=== PATIENT | male | born 1970 | race African-American/Black ===

== ENCOUNTER 2017-08-20 10:38 | Outpatient (CLI) | payer OTHER ==
--- NOTE | 2017-08-20 12:51 | MRI ---
MRI OF THE RIGHT LONG DIGIT: DATE: 08/20/17. PROVIDED CLINICAL HISTORY: Right long digit pain. FINDINGS: Evaluation is limited by patient motion. Regional marrow signal appears normal. Alignment appears anatomic. Joint spaces appear preserved. The extensor mechanism and flexor tendons appear intact. The flexor pulleys appear intact. The PIP and DIP joint capsules appear normal. No evidence for collateral ligament injury. The MCP joint sage ears normal. IMPRESSION: No evidence for internal derangement. POS: C
== END 2017-08-20 10:39 | disposition home or self-care (01) ==
LOC: TBSIIMAG 10:38
PROVIDERS: ATTEND Orthopaedic Surgery Hand Surgery
DX: S63.41 Traumatic rupture of collateral ligament of finger at metacarpophalangeal and interphalangeal joint (principal)